=== PATIENT | male | born 1985 | race Caucasian/White ===

== ENCOUNTER 2020-09-22 15:06 | Outpatient (CLI) | payer OTHER ==
--- NOTE | 2020-09-22 16:52 | Vascular Lab Report ---
DUPLEX DOPPLER LOWER EXTREMITY VEINS, RIGHT INDICATION / CLINICAL INFORMATION: VENOUS INSUFFICIENCY. TECHNIQUE: Duplex doppler imaging was performed through the veins of the right lower extremity using venous comp ression and other maneuvers. COMPARISON: None available. FINDINGS: RIGHT COMMON FEMORAL VEIN: Negative. RIGHT FEMORAL VEIN: Negative. RIGHT POPLITEAL VEIN: Negative. RIGHT CALF VEINS: Negative. ADDITIONAL FINDINGS: Also reflux is noted in the right greater saphenous vein, right common femoral a nd external iliac vein. Varicosities noted in the calf IMPRESSION: 1. No sonographic evidence for DVT in the right lower extremity. 2. Extensive reflux and varicose veins as noted Signer Name: Ace Trejo MD Signed: 09/22/2020 4:48 PM Workstation Name: [id number]
== END 2020-09-22 15:07 | disposition home or self-care (01) ==
LOC: VAS 15:06
PROVIDERS: ATTEND Internal Medicine
DX: I87.2 Venous insufficiency (chronic) (peripheral) (principal)